=== PATIENT | male | born 2000 | race Caucasian/White ===

== ENCOUNTER 2022-04-21 16:22 | Emergency (ER) | payer OTHER ==
[~2022-04-21] VITALS: Ht 175.3 cm; Wt 90.7 kg
== END 2022-04-21 18:57 | disposition home or self-care (01) ==
LOC: FER 16:22
DX: S01.01XA Laceration without foreign body of scalp, initial encounter (principal); S09.90XA Unspecified injury of head, initial encounter; W26.8XXA Contact with other sharp object(s), not elsewhere classified, initial encounter; V48.5XXA Car driver injured in noncollision transport accident in traffic accident, initial encounter
CPT/HCPCS: 70450; 72125